=== PATIENT | female | born 1975 | race Caucasian/White ===

== ENCOUNTER 2019-02-18 17:38 | Emergency (ER) | payer OTHER, SELFPAY ==
[2019-02-18 17:40] VITALS: BP 135/78; PULSE 99; RESP 17; TEMP 36.6; O2SAT 99; BMI 20.3
--- NOTE | 2019-02-18 17:55 | ED.VISSUMM ---
- ER Visit Summary Date of Service: 02/18/19 Chief Complaint: Paresthesias to the left foot History of Present Illness: The patient is a 43 F who presents with paresthesias to her left foot that is been constant for the past couple days. Patient describes this as a warm feeling over the dorsum of her left foot. Patient states is gradually gotten worse. Patient states she also noted some lymph nodes in her left inguinal area and left anterior cervical area. Patient states the paresthesias improved with stretching of her foot. Patient admits to some generalized weakness. Patient denies any foot weakness. Physical Examination: Vital signs are stable. Patient is afebrile. Patient is in no acute distress. Oral mucosa is pink and moist. Tympanic membranes are clear bilaterally. Neck is supple. Trachea is midline. There is some anterior cervical adenopathy on the left. There is also some left inguinal adenopathy. Heart was regular rate and rhythm. Lungs are clear and equal bilaterally. Abdomen is soft and nontender. Cranial nerves II through XII are intact. Strength is 5/5 bilateral in the upper and lower extremities. There are no sensory deficits noted. Pedal pulses are equal bilaterally. Test Results: CBC and basic metabolic profile were obtained and were within normal limits. Emergency Department Course and Treatment: She was reassured that her labs were all normal. Patient states she has an appoint with the [facility] nurse practitioner for a Pap smear on Wednesday. Patient was encouraged to follow-up with this. Patient was instructed that she may further evaluation of her lymph nodes such as a lymph node biopsy that must be arranged by her primary care physician. Patient understood and was agreeable with the plan. All questions were answered. Disposition: Discharge home Impression: 1. Paresthesias left foot 2. Lymphadenopathy This note was generated with [employer] software. It may contain incorrect words, spelling, and punctuation that were not noted in review of the chart prior to signing ED Disposition - Plan for ED Patient: Disposition: Home or Assisted Living Diagnosis: Lymphadenopathy, Paresthesias Instructions: Paraesthesias, CERVICAL ADENITIS, No Antibiotic Referrals: Myrtle Metz MD [Primary Care Provider] - 3-5 Days
[2019-02-18 18:14] LABS: Absolute Lymphocyte Count 3.13 X10^3/uL (0.83-4.51); Absolute Neutrophil Count 3.3 X10^3/uL (2.0-7.7); Basophil# 0.05 X10^3/uL; Basophil% 0.7 % (0-1); Eosinophil# 0.07 X10^3/uL; Eosinophils% 0.9 % (0-5); Hematocrit 37.4 % (37-47); Lymphocyte # 3.13 X10^3/ul (4.0); Lymphocyte % 41.7 % (19-41); Mean Corp Hgb Conc 32.1 g/dL (32-36); Mean Corpuscular Hgb 28.3 pg (27.0-32.0); Mean Corpuscular Volume 88.2 fL (81-99); Mean Platelet Vol. 10.3 fl (6.2-12.0); Monocyte# 0.98 X10^3/uL; NRBC Flagged by Analyzer 0 % (0-5); Neutrophil # 3.27 X10^3/uL (2.7-7.7); Neutrophil % 43.6 % (47-70); Platelet Count 324 K/mm3 (150-450); RBC Distribution Width CV 14.3 % (11.6-14.6); RBC Distribution Width SD 45.9 fl (35.1-43.9); Red Blood Count 4.24 M/mm3 (4.2-5.4); White Blood Count 7.5 K/mm3 (4.4-11.0)
[2019-02-18 18:26] LABS: Anion Gap 6 (5-15); BUN 7 mg/dL (7-18); Calcium,Total 8.5 mg/dL (8.5-10.1); Chloride 111 mmol/L (98-107); EST Glomerular Filtration Rate 97 mL/min (>60); Est Glom Filt Rate - Afr Amer 118 mL/min (>60); Estimated Creatinine Clearance 88.92 ml/min; Glucose 85 mg/dL (74-106); Potassium 3.7 mmol/L (3.5-5.1); Sodium Level 145 mmol/L (136-145)
[2019-02-18 19:47] VITALS: BP 121/63; PULSE 73; RESP 15; O2SAT 99
== END 2019-02-18 19:48 | disposition home or self-care (01) ==
PROVIDERS: Emergency Provider Emergency Medicine; Family Provider Internal Medicine; PCP Internal Medicine
DX: R20.2 Paresthesia of skin (principal); R59.0 Localized enlarged lymph nodes
CPT/HCPCS: 80048; 85025; 99282